=== PATIENT | female | born 1940 | race Caucasian/White ===

== ENCOUNTER 2017-10-11 01:59 | Emergency (ER) | payer MEDICARE ==
--- NOTE | 2017-10-11 02:21 | Emergency Department Record ---
History of Present Illness - General Chief Complaint: Dizziness Stated Complaint: DIZZY Time Seen by Provider: 10/11/17 02:02 Source: Patient Mode of Arrival: Wheelchair Limitations: No limitations - History of Present Illness Initial Comments: 77 yo female presents to ED for evaluation of dizziness, feeling off balance that occurred last night and again tonight. Patient reports chills as well, denies chest pain, cough, fevers, abdominal pain, focal weakness, or urinary symptoms. Patient reports that during the day that she felt well and worked in her yard without symptoms. Symptoms do not worsen with physical exertion. Patient denies history of DM. Patient reports a history of HTN and hypercholesterolemia. Patient denies the use of anticoagulation medications. MD Complaint: Dizziness Onset/Timin -: Minutes(s) Timing: Sudden onset Description: Difficulty walking, Lightheadedness, Off-balance History of Same: Yes History of Trauma: No Severity: Mild Improves With: Nothing Worsens With: Movement Associated Symptoms: Denies other symptoms - [place] Coma Scale Eye Response: (4) Open spontaneously Motor Response: (6) Obeys commands Verbal Response: (5) Oriented Pamela Total: 15 - Symptoms of Stroke Baseline State: Baseline State - Related Data Home Medications Medication Instructions Recorded Confirmed Last Taken Amlodipine Besylate [Norvasc] 5 mg PO DAILY 10/11/17 10/11/17 10/10/17 Aspirin [Aspir-Low] 81 mg PO DAILY 10/11/17 10/11/17 10/10/17 Atorvastatin Calcium 10 mg PO ASDIR 10/11/17 10/11/17 10/09/17 Ca/D3/Mag Ox/Zinc/Biophysics Professor/Julien/Bor 1 each PO 10/11/17 10/10/17 [Calcium 600+D3 Plus Caplet] Multivitamin [Multi-Vitamin Daily] 1 each PO 10/11/17 10/10/17 Allergies Allergy/AdvReac Type Severity Reaction Status Date / Time No Known Drug Allergies Allergy Verified 10/11/17 02:02 Travel Screening - Travel/Exposure Within Last 30 Days Have you traveled within the last 30 days?: No - Travel/Exposure Within Last Year Have you traveled outside the [place] in the last year?: No - Additonal Travel Details Have you been exposed to anyone with a communicable illness?: No - Travel Symptoms Symptom Screening: None Review of Systems Constitutional: Reports: Chills. Denies: Fever, Malaise, Night sweats Eyes: Denies: Eye discharge, Eye pain ENT: Denies: Congestion, Ear pain, Epistaxis Respiratory: Denies: Cough, Dyspnea Cardiovascular: Denies: Chest pain, Dyspnea on exertion Endocrine: Denies: Fatigue, Heat or cold intolerance Gastrointestinal: Denies: Abdominal pain, Nausea, Vomiting Genitourinary: Denies: Incontinence, Retention Musculoskeletal: Denies: Arthralgia, Back pain, Gout, Joint swelling Skin: Denies: Bruising, Change in color Neurological: Reports: Vertigo. Denies: Abnormal gait, Confusion, Headache, Seizure Psychiatric: Denies: Anxiety Hematological/Lymphatic: Denies: Anemia, Blood Clots Past Medical History - SOCIAL HISTORY Smoking Status: Never smoker Alcohol Use: Heavy Alcohol Use Comment: [employer] [employer] DAILY Drug Use: None - RESPIRATORY Hx Respiratory Disorders: No - CARDIOVASCULAR Hx Cardio Disorders: No - NEURO Hx Neuro Disorders: Yes Hx Dizziness: Yes - GI Hx GI Disorders: No - Hx Genitourinary Disorders: Yes Hx Bladder Problem: Yes - ENDOCRINE Hx Endocrine Disorders: No - MUSCULOSKELETAL Hx Musculoskeletal Disorders: No - PSYCH Hx Psych Problems: No - HEMATOLOGY/ONCOLOGY Hx Hematology/Oncology Disorders: No Family Medical History Any Significant Family History?: No Physical Exam - General General Appearance: Alert, Oriented x3, Cooperative, Mild distress Limitations: No limitations - Head Head exam: Atraumatic, Normocephalic, Normal inspection Head exam detail: negative: Abrasion, Contusion, Kat's sign, General tenderness, Hematoma, Laceration - Eye Eye exam: Normal appearance. negative: Conjunctival injection, Periorbital swelling, Periorbital tenderness, Scleral icterus - ENT Ear exam: negative: Auricular hematoma, Auricular trauma Nasal Exam: negative: Active bleeding, Discharge, Dried blood, Foreign body Mouth exam: negative: Drooling, Laceration, Muffled voice, Tongue elevation - Neck Neck exam: Normal inspection. negative: Meningismus, Tenderness - Respiratory Respiratory exam: Normal lung sounds bilaterally. negative: Rales, Respiratory distress, Rhonchi, Stridor - Cardiovascular Cardiovascular Exam: Regular rate, Normal rhythm, Normal heart sounds - GI/Abdominal GI/Abdominal exam: Soft. negative: Rebound, Rigid, Tenderness - Rectal Rectal exam: Deferred - exam: Deferred - Extremities Extremities exam: Normal inspection. negative: Pedal edema, Tenderness - Back Back exam: Denies: CVA tenderness (R), CVA tenderness (L) - Neurological Neurological exam: Alert, CN II-XII intact, Oriented X3, Other (No focal deficits on examination, NIH stroke scale 0.). negative: Motor sensory deficit - Psychiatric Psychiatric exam: Normal affect, Normal mood - Skin Skin exam: Normal color. negative: Abrasion Type of lesion: negative: abrasion Course Vital Signs 10/11/17 02:05 Temperature 97.8 F Pulse Rate [ 66 Pulse Ox Probe] Respiratory 16 Rate Blood Pressure 192/115 [Right Arm] Pulse Ox 96 - Reevaluation(s) Reevaluation #1: 10/11/17 02:21 EKG: NSR 61 LAD, normal intervals no acute ST-T wave changes present. Reevaluation #2: 10/11/17 02:50 Labs reviewed and are grossly unremarkable for an acute process. Patient is back from CT imaging, awaiting interpretation. Patient was updated on all results thus far, patient reports improvement in her symptoms as well. Reevaluation #3: 10/11/17 03:55 CT Brain: No acute process Patient was updated on all results, reports that her symptoms have resolved. Patient's ED results fail to demonstrate any acute abnormality, and symptoms may be related to elevated blood pressure which has improved while in the ED. Symptoms are non-exertional as well. Patient appears stable for discharge at this time with return for any reoccurrence of her symptoms. Medical Decision Making - Lab Data Result diagrams: 10/11/17 02:20 10/11/17 02:20 Disposition Disposition: Discharge Clinical Impression: Dizziness Disposition: Home, Self-Care Condition: (2) Stable Instructions: Dizziness (ED) Additional Instructions: Return to ED if your symptoms worsen or if you have any concerns. Follow-up with your family doctor in 3-5 days as directed. Forms: Patient Portal Access Time of Disposition: 03:57 Quality - Quality Measures Quality Measures: N/A - Blood Pressure Screening Does Patient Have Any of the Following: Active Dx of HTN Blood Pressure Classification: Pre-Hypertensive BP Reading Systolic Measurement: 178 Diastolic Measurement: 88 Screening for High Blood Pressure: Patient Exclusion, Hx of HTN [G9744]
[2017-10-11 02:26] LABS: HEMATOCRIT 39.2 % (35.0-47.0); HEMOGLOBIN 13.1 gm/dl (11.6-16.0); MEAN CELL VOLUME 90.7 fl (81-97); MEAN CORPUSCULAR HEMOGLOBIN 30.3 pg (27-33); MEAN CORPUSCULAR HGB CONC 33.4 g/dl (32-36); MEAN PLATELET VOLUME 10.2 fl (7.4-10.4); PLATELET COUNT 296 K/uL (130-400); RED BLOOD COUNT 4.32 M/uL (3.80-5.40); WHITE BLOOD COUNT W/O DIFF 5.2 K/uL (4.2-12.2)
[2017-10-11 02:31] LABS: URINE APPEARANCE CLEAR; URINE BILIRUBIN NEGATIVE (NEGATIVE); URINE BLOOD TRACE-I (NEGATIVE); URINE COLOR YELLOW; URINE GLUCOSE (UA) NEGATIVE (NEGATIVE); URINE KETONE NEGATIVE (NEGATIVE); URINE LEUKOCYTE ESTERASE NEGATIVE (NEGATIVE); URINE NITRITE NEGATIVE (NEGATIVE); URINE PROTEIN NEGATIVE (NEGATIVE); URINE UROBILINOGEN 0.2 E.U./dL (0.20 - 1.00)
[2017-10-11 02:32] LABS: URINE BACTERIA NONE SEEN; URINE EPITHELIAL CELLS 0 - 2 (FEW); URINE RBC 0 - 2 (NONE SEEN); URINE WBC 0 - 2 (0-2/hpf)
[2017-10-11 02:35] LABS: BILIRUBIN,TOTAL < 0.20 mg/dL (0.2-1.0); BLOOD UREA NITROGEN 17 mg/dL (8-23); CREATININE 0.5 mg/dL (0.5-0.9); EST GLOMERULAR FILTRATION RATE > 60 mL/min
[2017-10-11 02:36] LABS: TOTAL PROTEIN 6.7 g/dL (6.6-8.7)
[2017-10-11 02:38] LABS: GLUCOSE,RANDOM 109 mg/dL (74-109)
[2017-10-11 02:40] LABS: ALT/SGPT 15 U/L (<33)
[2017-10-11 02:41] LABS: ALB/GLOB RATIO 1.5 (1.1-1.8); ALKALINE PHOSPHATASE 80 U/L (35-104); AST/SGOT 20 U/L (10.0-35.0)
--- NOTE | 2017-10-12 13:52 | CT SCAN REPORT ---
EXAM: EMERGENCY HEAD CT WITHOUT CONTRAST HISTORY: [facility] BEGINNING THREE DAYS AGO, RESOLVED AND RETURNED TONIGHT. TECHNIQUE: Axial CT scan of the head was performed without IV contrast. A preliminary report was provided by [facility]. Comparison: Head CT 06/30/11. FINDINGS: No definite acute intracranial hemorrhage identified. No focal mass effect or midline shift apparent. Mild generalized atrophy slightly more pronounced than before. There is a small hyperdensity again seen in the midline in the region of the anterior aspect of the third ventricle. This previously was measured at about 4 mm and today measures about 5.5 mm. This again may represent a small colloid cyst that has increased slightly in size. No depressed calvarial fracture is evident. IMPRESSION: 1. MILD GENERALIZED ATROPHY. 2. NO DEFINITE ACUTE INTRACRANIAL HEMORRHAGE OR FOCAL MASS EFFECT EVIDENT. 3. POSSIBLE SMALL COLLOID CYST ALONG THE ANTERIOR ASPECT OF THE THIRD VENTRICLE ALSO PRESENT PREVIOUSLY, MINIMALLY LARGER TODAY. IF NEUROLOGIC SYMPTOMS PERSIST, FOLLOW-UP MRI OF THE BRAIN WOULD BE SUGGESTED FOR FURTHER ASSESSMENT IF NOT CONTRAINDICATED. JOB NUMBER: [id number] [facility]
== END 2017-10-11 04:11 | disposition home or self-care (01) ==
LOC: ER 01:59
DX: R42 Dizziness and giddiness (principal); R26.2 Difficulty in walking, not elsewhere classified; I10 Essential (primary) hypertension
CPT/HCPCS: 70450; 80053; 81001; 85027; 93005; 93010; 99284